=== PATIENT | male | born 1940 | race Caucasian/White ===

== ENCOUNTER → 2016-03-03 | Outpatient (CLI) | payer OTHER ==
[~2016-03-03] VITALS: Ht 177.8 cm; Wt 67.1 kg
[~2016-03-03] MED LIST: CALCIUM 600 +1 EAC2 PO; CALCIUM 600 +1 EAC7 PO; CARAC30 GM; CITRATE OF MAG296 ML PO; DESYREL100 MG PO; DULCOLAX10 MG PR; FLEET MINERAL133 ML PR; FLOMAX0.4 MG PO; FLUOROURACIL40 GM TP; GABAPENTIN400 MG PO; HYDROCHLOROTHIA25 MG PO; HYDROCODON-ACE1 EAC9 PO; LASIX20 MG PO; LOSARTAN POTAS100 MG PO; MACUVITE EYE C1 EACH PO; METHADONE5 MG PO; MILK OF MAGN PO; MIRALAX255 GM PO; MOBIC15 M1 PO; MULTI VITAMIN1 EACH PO; MULTIVITAMIN1 EAC2 PO; NEURONTIN300 MG PO; NEURONTIN600 M1 PO; NORCO 10-325 T1 EACH PO; NORCO 10/3251 TABLET PO; OMEPRAZOLE20 MG PO; RANITIDINE HCL150 MG PO; TRAZODONE HCL100 MG PO; TYLENOL REGULA325 MG PO; VITAMIN D2000 UNIT PO
== END ==
LOC: AMB 13:55
DX: Z09 Encounter for follow-up examination after completed treatment for conditions other than malignant neoplasm (principal); Z86.010 Personal history of colon polyps; D12.0 Benign neoplasm of cecum; D12.3 Benign neoplasm of transverse colon; K57.90 Diverticulosis of intestine, part unspecified, without perforation or abscess without bleeding; K64.9 Unspecified hemorrhoids; I10 Essential (primary) hypertension; M19.90 Unspecified osteoarthritis, unspecified site
CPT/HCPCS: 88305

== ENCOUNTER 2016-05-27 14:26 | Observation (INO) | payer OTHER ==
[~2016-05-27] VITALS: Ht 172.7 cm; Wt 71.5 kg
[2016-05-27 15:18] LABS: BASOPHIL COUNT 0.1 K/uL (0-0.1); EOSINOPHIL (%) 0.2 % (0-5); HEMATOCRIT 45.7 % (38.0-50.0); IMMATURE GRANULOCYTE (%) 0.3 % (0.0-0.7); INSTRUMENT ABS NEUTROPHIL CT 7.2 K/uL; LYMPHOCYTE COUNT 1.2 K/uL (1.0-2.8); MCH 28.2 PG (29.0-34.0); MCHC 31.5 G/DL (30.0-36.0); MCV 89.6 FL (86-99); MONOCYTE (%) 4.8 % (3-12); MONOCYTE COUNT 0.4 K/uL (0-0.8); NEUTROPHIL (%) 80.5 % (45-76); NEUTROPHIL COUNT 7.2 K/uL (1.8-6.4); PLATELET COUNT 217 K/uL (156-360); RBC DIS.WIDTH-CV 14.7 % (11.8-14.6); RBC DIS.WIDTH-SD 48.8 % (39-53)
[2016-05-27 15:29] LABS: CHLORIDE 104 mEq/L (99-109); POTASSIUM 4.1 mEq/L (3.7-5.4); SODIUM 142 mEq/L (136-147)
[2016-05-27 15:30] LABS: INTER. NORMALIZED RATIO 1.1; PROTHROMBIN TIME 10.7 (9.2-11.2); PTT 27.5 (25-32)
[2016-05-27 15:31] LABS: GLUCOSE 132 mg/dL (70-99)
[2016-05-27 15:32] LABS: ANION GAP 10 MEQ/L (2-14)
[2016-05-27 15:35] LABS: GFR ESTIMATE (CALCULATED) > 59 mL/min/; UREA NITROGEN (BUN) 11 mg/dL (9-23)
[2016-05-27 15:42] LABS: TROP-I INTERPRETATION NEGATIVE; TROPONIN-I < 0.01 ng/mL (0.0-0.30)
[2016-05-27] MEDS ORDERED: MUCINEX600 MG PO (16:11)
[2016-05-27] MEDS ORDERED: NEURONTIN600 MG PO (16:14)
[2016-05-27] MEDS ORDERED: DOLOPHINE HCL5 MG PO (16:16)
[2016-05-27] MEDS ORDERED: PROMETHAZINE HC25 M1 PO (16:25)
[2016-05-27 20:37] VITALS: BP 119/55
[2016-05-27 21:00] VITALS: BP 123/66
[2016-05-27 22:55] LABS: TROP-I INTERPRETATION NEGATIVE; TROPONIN-I < 0.01 ng/mL (0.0-0.30)
[2016-05-28 00:28] VITALS: BP 138/59
[2016-05-28 04:01] VITALS: BP 116/57
[2016-05-28 04:11] LABS: TROP-I INTERPRETATION NEGATIVE; TROPONIN-I < 0.01 ng/mL (0.0-0.30)
[2016-05-28 09:38] VITALS: BP 149/69
[2016-05-28 11:13] VITALS: BP 119/58
[2016-05-28 11:16] VITALS: BP 126/68
== END 2016-05-28 13:18 ==
LOC: EME 14:26 → EDOF 16:32 → 5WEST 16:32
PROVIDERS: Emergency Medicine; Internal Medicine
DX: R07.89 Other chest pain (principal); I10 Essential (primary) hypertension; Z87.891 Personal history of nicotine dependence; B91 Sequelae of poliomyelitis; Z86.010 Personal history of colon polyps
CPT/HCPCS: 71010; 80048; 84484; 85025; 85610; 85730; 93005; 99281; 99285; G0378; J1650